=== PATIENT | female | born 1945 | race Caucasian/White ===

== ENCOUNTER 2017-07-02 08:49 | Inpatient (IN) | payer MEDICARE ==
[~2017-07-02] VITALS: Ht 170.2 cm; Wt 130.6 kg
[~2017-07-02 08:49] MED LIST: BACLOFEN10 MG PO; BAY PO; CILOS OD; FERROUS FUMARAT PO; FLUTICASON0.05 MG/Ac NS; LEVOTHYROXINE0.1 M2 PO; NIT0.4 SL; PRO40 PO; SPIRONOLACTONE100 MG PO; VITAMIN B121000 MC3 PO; ZOC10 PO
[2017-07-02 08:52] VITALS: Ht 170.2 cm; Wt 130.6 kg
[2017-07-02 09:45] LABS: BASOPHIL % 0.4 % (0-2); PLATELET COUNT 235 x10^3mcL (130-400); RED CELL DISTRIBUTION WIDTH 13.9 % (11.5-14.5)
[2017-07-02 09:52] LABS: CALCIUM 8.4 mg/dL (8.5-10.1); CARBON DIOXIDE 25.1 mmol/L (21-32); CREATININE SERUM 1.1 mg/dL (0.6-1.0); POTASSIUM SERUM 4.5 mmol/L (3.5-5.1)
[2017-07-02 10:03] LABS: BILIRUBIN TOTAL 0.3 mg/dL (0.20-1.00); T4(THYROXINE) 7.5 ug/dL (4.7-13.3); TOTAL PROTEIN, SERUM 7.2 g/dL (6.4-8.2)
[2017-07-02 10:04] LABS: ALBUMIN 3.2 g/dL (3.4-5.0)
[2017-07-02] MEDS ORDERED: SPIRONOLACTONE100 MG PO (11:23)
[2017-07-02] MEDS ORDERED: PANTOPRAZOLE SO40 M1 PO (11:24)
[2017-07-02] MEDS ORDERED: VITAMIN D32000 I2 PO (11:24)
[2017-07-02] MEDS ORDERED: SYNTHROID0.1 MG PO (11:24)
[2017-07-02] MEDS ORDERED: NITROSTAT0.4 MG SL (11:25)
[2017-07-02 12:43] VITALS: BP 145/47
[2017-07-02 13:59] LABS: MAGNESIUM 2.1 mg/dL (1.8-2.4); PHOSPHOROUS 3.3 mg/dL (2.5-4.9)
[2017-07-02 14:04] LABS: T3 TOTAL 0.82 ng/mL
[2017-07-02 14:11] LABS: FREE T4 1.26 ng/dL (0.76-1.46); FREE THYROXINE INDEX 2.9 ug/dL (1.4-4.5); T4(THYROXINE) 8.6 ug/dL (4.7-13.3)
[2017-07-02 14:21] LABS: AMPHETAMINE QUAL UR NONE DETECTED (NEG <=1000)
[2017-07-02 17:05] VITALS: BP 122/54
[2017-07-02 17:14] LABS: microscopic required? NO
[2017-07-02 17:21] LABS: urine erythrocyte NEGATIVE (NEGATIVE)
[2017-07-02 21:04] VITALS: BP 145/56
[2017-07-03 05:31] VITALS: BP 101/62
[2017-07-03 07:00] LABS: BASOPHIL % 0.3 % (0-2); PLATELET COUNT 217 x10^3mcL (130-400); RED CELL DISTRIBUTION WIDTH 14.1 % (11.5-14.5)
[2017-07-03 07:02] LABS: CALCIUM 8.2 mg/dL (8.5-10.1); CARBON DIOXIDE 23.2 mmol/L (21-32); POTASSIUM SERUM 4.1 mmol/L (3.5-5.1)
[2017-07-03 09:29] VITALS: BP 95/49
[2017-07-03 12:40] VITALS: BP 130/64
[2017-07-03 17:40] VITALS: BP 132/63
[2017-07-03 20:40] VITALS: BP 129/48
[2017-07-04 05:28] VITALS: BP 126/78
[2017-07-04 10:14] VITALS: BP 125/63
[2017-07-04 12:10] VITALS: BP 109/47
[2017-07-04] MEDS ORDERED: PEPCID20 MG PO (12:50)
[2017-07-04] MEDS ORDERED: ZANTAC 150150 MG PO ×2 (12:52→15:33)
[2017-07-04] MEDS ORDERED: COUMADIN10 MG PO (13:11)
[2017-07-04 13:36] VITALS: BP 109/47
== END 2017-07-04 15:43 | disposition home or self-care (01) | DRG 391 ==
LOC: ED 08:49 → DU 11:49
PROVIDERS: Emergency Medicine; Family Medicine
DX: K22.4 Dyskinesia of esophagus (principal); N17.0 Acute kidney failure with tubular necrosis; E44.1 Mild protein-calorie malnutrition; Z68.41 Body mass index [BMI] 40.0-44.9, adult; J44.1 Chronic obstructive pulmonary disease with (acute) exacerbation; I24.9 Acute ischemic heart disease, unspecified; I48.2 Chronic atrial fibrillation; I10 Essential (primary) hypertension; I45.10 Unspecified right bundle-branch block; I25.10 Atherosclerotic heart disease of native coronary artery without angina pectoris; R73.03 Prediabetes; R16.0 Hepatomegaly, not elsewhere classified; E28.2 Polycystic ovarian syndrome; E89.0 Postprocedural hypothyroidism; E66.01 Morbid (severe) obesity due to excess calories; Z98.84 Bariatric surgery status; Z87.891 Personal history of nicotine dependence; Z79.82 Long term (current) use of aspirin; Z88.6 Allergy status to analgesic agent; Z88.0 Allergy status to penicillin; Z88.2 Allergy status to sulfonamides; Z83.3 Family history of diabetes mellitus; Z82.49 Family history of ischemic heart disease and other diseases of the circulatory system; Z80.9 Family history of malignant neoplasm, unspecified; Z82.3 Family history of stroke
CPT/HCPCS: 83880; 84439; J2785; J7030; Q0092